=== PATIENT | female | born 1970 | race Caucasian/White ===

== ENCOUNTER 2023-02-04 11:03 | Emergency (ER) | payer BC ==
[~2023-02-04] VITALS: Ht 170.2 cm; Wt 145.5 kg
[2023-02-04 11:13] VITALS: TEMP 98.6
[2023-02-04] MEDS ORDERED: WALKER MC (11:42)
[2023-02-04 11:48] VITALS: BP 148/78; PULSE 80
== END 2023-02-04 11:48 | disposition home or self-care (01) ==
LOC: COL.ER 11:03
DX: S86.001A Unspecified injury of right Achilles tendon, initial encounter (principal); Z28.310 Unvaccinated for COVID-19; X50.1XXA Overexertion from prolonged static or awkward postures, initial encounter; Y92.59 Other trade areas as the place of occurrence of the external cause; Y93.01 Activity, walking, marching and hiking; Y99.0 Civilian activity done for income or pay